=== PATIENT | male | born 1955 | race Caucasian/White ===

== ENCOUNTER 2018-11-03 14:06 | Emergency (ER) | payer OTHER ==
[~2018-11-03] VITALS: Ht 175.3 cm; Wt 104.3 kg
[2018-11-03 14:44] LABS: ABSOLUTE NEUTROPHILS 3.3 thou/uL (1.4-8.2); BASOPHILS 0.6 % (0.0-2.0); EOSINOPHILS 8.5 % (0.0-3.0); HEMATOCRIT 35.6 % (42.0-52.0); HEMOGLOBIN 10.9 gm/dL (14.0-18.0); LYMPHOCYTES 20.6 % (24.0-44.0); MCH 22.2 pg (26.0-34.0); MCHC 30.6 g/dL (28.0-37.0); MCV 72.4 fL (80.0-100.0); MONOCYTES 9.9 % (1.0-8.0); PLATELET COUNT 144 thou/uL (150-400); POLYS 60.4 % (36.0-66.0); RBC 4.91 mil/uL (4.50-6.00); WBC 5.4 thou/uL (4.0-11.0)
[2018-11-03 14:45] LABS: BE(vivo) 2.7 mmol/L (-2 to +3); HCO3 29.4 mmol/L (22.0-26.0); PCO2 55.4 mmHg (35.0-45.0); PO2 68.4 mmHg (80.0-100.0); pH 7.342 (7.360-7.450); sO2 92.4 % (92.0-98.0)
[2018-11-03 14:54] LABS: ANION GAP 8 mmol/L (7-16); BUN 14 mg/dL (7-18); CALCIUM 9.2 mg/dL (8.5-10.1); CHLORIDE 100 mmol/L (98-107); CO2 33 mmol/L (21-32); CREATININE 0.9 mg/dL (0.7-1.3); GLUCOSE 142 mg/dL (74-106); POTASSIUM 3.7 mmol/L (3.5-5.1); SODIUM 141 mmol/L (136-145)
[2018-11-03 14:55] LABS: APTT 31.3 Seconds (24.5-32.8); INR 1.1; PROTIME 11.7 Seconds (9.3-11.4)
[2018-11-03 15:03] LABS: ALBUMIN 3.7 g/dL (3.4-5.0); MAGNESIUM 1.6 mg/dL (1.8-2.4); SGOT 17 U/L (15-37); SGPT 29 U/L (30-65); TOTAL BILIRUBIN 0.3 mg/dL (<0.1-1.0); TOTAL PROTEIN 7.3 g/dL (6.4-8.2); TROPONIN-I <0.06 ng/mL (<0.06)
[2018-11-03 15:24] LABS: ANISOCYTOSIS 1+; HYPOCHROMASIA SLIGHT; MICROCYTES 1+; POIKILOCYTOSIS SLIGHT
[2018-11-03 16:00] VITALS: BP 130/80
--- NOTE | 2018-11-03 18:26 | EKG ---
[place] [address] [facility] [place] [address] ELECTROCARDIOGRAM REPORT Name: WARD JOHNSON Room #: AWILDA Singh#: [id number] ������������������ Admission: 11/03/18 ������������������ Attend Phys: Discharge: ������������������ Date of : 57 Report #: [id number] ����������������������������������������������������������������� [id number] THIS REPORT FOR: //name// [facility] ED Test Date: 2018-11-03 Test Time: 14:16:09 Pat Name: WARD JOHNSON Department: Room: Gender: Rover Tender: YUDY : 1955 Requested By: Eduardo Casarez Order Number: [id number] MD: Clifford Alvarez Measurements Intervals [place] Rate: 76 P: 42 MI: 153 QRS: 25 QRSD: 101 T: 20 QT: 388 QTc: 437 Interpretive Statements Sinus rhythm Nonspecific T wave abnormality No previous ECG available for comparison Electronically Signed On 11-03-2018 18:25:52 CDT by Clifford Alvarez [email or web address] ��������������������������������������������� <ELECTRONICALLY SIGNED> ���������������������������������������� By: Clifford Alvarez MD, [facility] ��������������������������������������������� 11/03/18 1825 1416 1416 Clifford Alvarez MD, FACC /EPI
== END 2018-11-03 16:00 | disposition left against medical advice (07) ==
LOC: ER 14:06
PROVIDERS: Emergency Medicine
DX: G47.30 Sleep apnea, unspecified (principal); I50.1 Left ventricular failure, unspecified; E83.42 Hypomagnesemia; R79.1 Abnormal coagulation profile; D50.9 Iron deficiency anemia, unspecified; J98.01 Acute bronchospasm